=== PATIENT | female | born 1995 | race Caucasian/White ===

== ENCOUNTER 2025-03-15 15:17 | Emergency (ER) | payer MEDICAID ==
[~2025-03-15] VITALS: Ht 167.6 cm; Wt 84.4 kg
[2025-03-15 16:08] LABS: *URINE HCG, QUAL NEGATIVE (NEGATIVE)
[2025-03-15 17:10] VITALS: BP 132/81; O2SAT 98
== END 2025-03-15 17:11 | disposition home or self-care (01) ==
LOC: ER 15:23
DX: S16.1XXA Strain of muscle, fascia and tendon at neck level, initial encounter (principal); S39.012A Strain of muscle, fascia and tendon of lower back, initial encounter; X58.XXXA Exposure to other specified factors, initial encounter; Y93.89 Activity, other specified; Y92.89 Other specified places as the place of occurrence of the external cause; Y99.8 Other external cause status
CPT/HCPCS: 72125; 72131; 84703; A4606; A4663